=== PATIENT | female | born 1955 | race Caucasian/White ===

== ENCOUNTER 2018-10-02 12:20 | Observation (INO) | payer OTHER ==
[~2018-10-02] VITALS: Ht 162.6 cm; Wt 89.2 kg
[~2018-10-02 12:20] MED LIST: ANECREAM515 GM; CEPH500 PO; Inderal 20 mg T20 MG PO; MIRALAX119 GM; ONDA4ODT MM; Omeprazole20 M1 PO; Stool Softener100 MG PO; TRAM50 PO; ZESTORETIC 20-121 EA PO
[2018-10-02 13:03] LABS: Source, Urine Clean Catch
[2018-10-02 13:08] LABS: BASOPHILS ABSOLUTE AUTO 0.04 K/mm3 (0.00-0.23); BASOPHILS PERCENT AUTO 1 % (0-2); EOSINOPHILS ABSOLUTE AUTO 0.09 K/mm3 (0.00-0.68); EOSINOPHILS PERCENT AUTO 1 % (0-6); Hematocrit 48.2 % (33.0-51.0); Hemoglobin 15.4 g/dL (11.5-16.0); IMMATURE GRAN ABSOLUTE AUTO 0.04 K/mm3 (0.00-0.10); IMMATURE GRAN PERCENT AUTO 1 % (0-1); LYMPHOCYTES ABSOLUTE AUTO 1.86 K/mm3 (0.84-5.20); LYMPHOCYTES PERCENT AUTO 23 % (21-46); MONOCYTES ABSOLUTE AUTO 0.56 K/mm3 (0.16-1.47); MONOCYTES PERCENT AUTO 7 % (4-13); Mean Corpuscular HGB 29.3 pg (26.0-34.0); Mean Corpuscular Volume 92 fL (80-100); Mean Platelet Volume 11.2 fL (9.1-12.4); NEUTROPHILS ABSOLUTE AUTO 5.47 K/mm3 (1.96-9.15); NEUTROPHILS PERCENT AUTO 68 % (41-73); Platelet Count 283 K/mm3 (150-400); RDW Coefficient Variation 13.8 % (11.7-14.2); RDW Standard Deviation 46.7 fL (35.1-46.3); Red Blood Cell Count 5.25 M/mm3 (3.80-5.20); White Blood Cell Count 8.06 K/mm3 (4.00-11.30)
[2018-10-02 13:10] LABS: Appearance, Urine Hazy (Clear); Blood, Urine Neg (Neg); Color, Urine Yellow (P-Yellow); Glucose Qualitative, Urine Neg (Neg); Ketones, Urine 2+ (Neg); Leukocyte Esterase, Urine 1+ (Neg); Nitrite, Urine Neg (Neg); Protein, Urine 2+ (Neg); Specific Gravity, Urine 1.025 (1.003-1.022); Urobilinogen, Urine 1+ (Normal)
[2018-10-02 13:33] LABS: Bilirubin, Urine 2+ (Neg)
[2018-10-02 13:34] LABS: Bacteria Mod /hpf; Granular Casts 0-2 /lpf (0); Red Blood Cells, Urine Not Seen /hpf (0-2); Squamous Epithelial Cells Mod /hpf (Few)
[2018-10-02 15:07] LABS: Albumin, Blood 3.6 g/dL (3.4-5.0); Albumin/Globulin Ratio 1.1 (0.8-1.8); Bilirubin, Total 0.3 mg/dL (0.1-1.0); Bun/Creatinine Ratio 21.4 (12.0-20.0); Calcium, Blood 9.7 mg/dL (8.5-10.1); Creatinine, Blood 2.06 mg/dL (0.40-1.00); Globulin, Blood 3.4 g/dL (2.2-4.0); Potassium, Blood 4.5 mmol/L (3.5-5.5)
[2018-10-02] MEDS ORDERED: LISI20 PO (15:37)
[2018-10-02] MEDS ORDERED: Pravachol40 MG PO (15:38)
[2018-10-02] MEDS ORDERED: CHOL10002 (15:38)
[2018-10-02] MEDS ORDERED: PIOG15 PO (18:24)
[2018-10-03 05:06] LABS: Hematocrit 40.5 % (33.0-51.0); Hemoglobin 12.7 g/dL (11.5-16.0); Mean Corpuscular HGB 28.7 pg (26.0-34.0); Mean Corpuscular HGB Conc 31.4 g/dL (31.5-36.5); Mean Corpuscular Volume 92 fL (80-100); Mean Platelet Volume 10.8 fL (9.1-12.4); Platelet Count 240 K/mm3 (150-400); RDW Coefficient Variation 13.6 % (11.7-14.2); RDW Standard Deviation 46.2 fL (35.1-46.3); Red Blood Cell Count 4.42 M/mm3 (3.80-5.20); White Blood Cell Count 6.71 K/mm3 (4.00-11.30)
--- NOTE | 2018-10-03 05:27 | NUR ---
SHIFT SUMMARY PT ADMITTED FOR MARTÍN, ALERT AND ORIENTED. UP WITH SBA TO BATHROOM, SOME WEAKNESS NOTED. PT RUNNING LOW B/P, B/P MEDS HELD DURING THE NIGHT. PT HAS NO C/O'S NAUSEA UPON ARRIVAL TO UNIT, HAS EATEN 4 JELLOS. IVF'S INFUSING WITHOUT DIFFICULTY. PT SLEPT WELL DURING THE NIGHT. PT ADMITS TO FEELING BETTER THIS AM. WILL CONTINUE TO MONITOR.
[2018-10-03 05:37] LABS: Bun/Creatinine Ratio 21.5 (12.0-20.0); Calcium, Blood 8.5 mg/dL (8.5-10.1); Creatinine, Blood 1.49 mg/dL (0.40-1.00); Potassium, Blood 4.2 mmol/L (3.5-5.5)
--- NOTE | 2018-10-03 10:36 | NUR ---
Advance Directive Education/spiritual care visit conducted. Patient admit referral for AD education completed. Walked patient through the importance and process of Advance Directive, patient acknowledged comprehension and stated that she will complete forms in presence of health infant caregiver. Also conducted spiritual care visit including providing emotional support, normalizing patient experience and providing a calming presence. Patient expressed gratitude for the visit.
--- NOTE | 2018-10-03 16:30 | NUR ---
TO DAY SURGERY FOR EGD
--- NOTE | 2018-10-03 17:01 | NUR ---
10/03/18 1701 Gonzalez See PATIENT DETERMINED TO BE ASA APPROPRIATE FOR PROPOFOL SEDATION PRIOR TO START OF PROCEDURE BY DR. Reyes Block Placed. 3-LEAD EKG REVIEWED WITH PHYSICIAN PRIOR TO START OF PROCEDURE.Patient to ENDO 1History, Chart, Medications and Allergies reviewed before start of procedure. MONITOR INTACT WITH CONTINUOUS PULSE OXIMETRY AND INTERMITTENT BP.O2 VIA N/C INTACT THROUGHOUT SEDATION/PROCEDURE.
--- NOTE | 2018-10-04 05:32 | NUR ---
SHIFT SUMMARY PT HAD UNEVENTFUL NIGHT. NO C/O'S NAUSEA. HAS BEEN UP TO BATHROOM PER SELF DURING THE NIGHT. HAD LOOSE STOOL THIS AM, SPECIMEN SENT TO LAB. WILL CONTINUE TO MONITOR.
[2018-10-04 05:39] LABS: Albumin, Blood 3.3 g/dL (3.4-5.0); Anion Gap 6 mmol/L (6-16); Blood Urea Nitrogen 16 mg/dL (8-24); Bun/Creatinine Ratio 13.6 (12.0-20.0); CO2, Blood 24 mmol/L (21-32); Calcium, Blood 8.9 mg/dL (8.5-10.1); Chloride, Blood 115 mmol/L (98-108); Creatinine, Blood 1.18 mg/dL (0.40-1.00); Glomerular Filtration Rate 49 (60-); Glucose, Blood 85 mg/dL (70-99); Phosphorus, Blood 2.9 mg/dL (2.5-4.9); Potassium, Blood 3.9 mmol/L (3.5-5.5); Sodium, Blood 145 mmol/L (136-145)
[2018-10-04 05:55] LABS: Adenovirus F 40/41 Not Detected (NOT DETECT); Astrovirus Not Detected (NOT DETECT); Campylobacter Sp Not Detected (NOT DETECT); Cryptosporidium Not Detected (NOT DETECT); Cyclospora Cayetanensis Not Detected (NOT DETECT); E. Coli O157 Not Detected (NOT DETECT); Entamoeba Histolytica Not Detected (NOT DETECT); Enteroaggregative E. coli-EAEC Not Detected (NOT DETECT); Enteropathogenic E. coli-EPEC Not Detected (NOT DETECT); Enterotoxigenic E. coli-ETEC Not Detected (NOT DETECT); Giardia Lamblia Not Detected (NOT DETECT); Norovirus GI/GII Not Detected (NOT DETECT); Plesiomonas Shigelloides Not Detected (NOT DETECT); Rotavirus A Not Detected (NOT DETECT); Salmonella Sp Not Detected (NOT DETECT); Sapovirus Not Detected (NOT DETECT); Shiga Toxin-prod E. coli-STEC Not Detected (NOT DETECT); Shigella/Enteroin E. coli-EIEC Not Detected (NOT DETECT); Vibrio Cholerae Not Detected (NOT DETECT); Vibrio Sp Not Detected (NOT DETECT); Yersinia Enterocolitica Not Detected (NOT DETECT)
[2018-10-04] MEDS ORDERED: ACET325 PO (11:44)
[2018-10-04] MEDS ORDERED: GAVILAX17 GM PO (11:45)
[2018-10-04] MEDS ORDERED: PANT40 PO (11:46)
--- NOTE | 2018-10-04 12:08 | NUR ---
PATIENT D/C'D TO HOME WITH . RX MEDICATIONS FAXED TO [facility]. DC INSTRUCTIONS AND EDUCATION DISCUSSED WITH PATIENT AND COPY PROVIDED. PATIENT DENIES ANY FURTHER QUESTIONS OR CONCERNS.
== END 2018-10-04 12:21 | disposition home or self-care (01) ==
LOC: ER 12:20 → MEDS 12:21 → ENPENDDIS 10-04 11:28 → MEDS 10-04 12:21
PROVIDERS: Emergency Medicine; Physician Assistant; Student in an Organized Health Care Education/Training Program; ADMIT Internal Medicine
PROC: 0DB98ZX Excision of Duodenum, Via Natural or Artificial Opening Endoscopic, Diagnostic (ICD-10-PCS; principal; 2018-10-03 17:15)
PROC: 0DB68ZX Excision of Stomach, Via Natural or Artificial Opening Endoscopic, Diagnostic (ICD-10-PCS; principal; 2018-10-03 17:15)
DX: K25.9 Gastric ulcer, unspecified as acute or chronic, without hemorrhage or perforation (principal); K26.9 Duodenal ulcer, unspecified as acute or chronic, without hemorrhage or perforation; K29.50 Unspecified chronic gastritis without bleeding; B96.81 Helicobacter pylori [H. pylori] as the cause of diseases classified elsewhere; K29.80 Duodenitis without bleeding; K44.9 Diaphragmatic hernia without obstruction or gangrene; N17.9 Acute kidney failure, unspecified; R15.0 Incomplete defecation; E11.9 Type 2 diabetes mellitus without complications; I10 Essential (primary) hypertension; E78.5 Hyperlipidemia, unspecified; E66.9 Obesity, unspecified; F17.210 Nicotine dependence, cigarettes, uncomplicated; Z88.8 Allergy status to other drugs, medicaments and biological substances; Z88.5 Allergy status to narcotic agent; Z79.899 Other long term (current) drug therapy
CPT/HCPCS: 36415; 74018; 76770; 80048; 80053; 80069; 81001; 82947; 83036; 83690; 85025; 85027; 87086; 87507; 96361; 96374; 96375; 96376; 99285-25; C9113; G0378; J2550; J2704; J2765; J7030; J7120

== ENCOUNTER → 2022-04-09 | Outpatient (CLI) | payer MEDICARE, OTHER ==
[~2022-04-09] MED LIST changes: +ACET325 PO; +CHOL10002; +GAVILAX17 GM PO; +LIDO700A20 TOP; +LISI20 PO; +PANT40 PO; +PIOG15 PO; +Pravachol40 MG PO
[2022-04-10 19:37] LABS: Protein, Urine Quantitative 14.6 mg/dL (0.0-11.9)
[2022-04-10 19:38] LABS: Microalbumin, Urine Quant. <5.000 mg/L (0.000-20.000)
== END | disposition home or self-care (01) ==
LOC: LAB SHORT 07:30 → LAB 07:30
PROVIDERS: Internal Medicine Nephrology
DX: N18.30 Chronic kidney disease, stage 3 unspecified (principal); D63.1 Anemia in chronic kidney disease; N25.81 Secondary hyperparathyroidism of renal origin; E55.9 Vitamin D deficiency, unspecified; E78.00 Pure hypercholesterolemia, unspecified; G60.9 Hereditary and idiopathic neuropathy, unspecified; D51.8 Other vitamin B12 deficiency anemias; D50.9 Iron deficiency anemia, unspecified; R76.9 Abnormal immunological finding in serum, unspecified; R94.5 Abnormal results of liver function studies; R94.6 Abnormal results of thyroid function studies
CPT/HCPCS: 81050; 82043; 82570; 84156

== ENCOUNTER → 2022-04-10 | Outpatient (CLI) | payer MEDICARE, OTHER | END | disposition home or self-care (01) | LOC: LAB 06:59 → LAB SHORT 06:59 | DX: N18.30 Chronic kidney disease, stage 3 unspecified (principal); D63.1 Anemia in chronic kidney disease; N25.81 Secondary hyperparathyroidism of renal origin; E55.9 Vitamin D deficiency, unspecified; E78.00 Pure hypercholesterolemia, unspecified; G50.9 Disorder of trigeminal nerve, unspecified; D51.8 Other vitamin B12 deficiency anemias; D50.9 Iron deficiency anemia, unspecified; R76.9 Abnormal immunological finding in serum, unspecified; R94.5 Abnormal results of liver function studies; R94.6 Abnormal results of thyroid function studies | CPT/HCPCS: 86335 ==

== ENCOUNTER 2023-01-26 09:52 | Day surgery (SDC) | payer MEDICARE, OTHER ==
[~2023-01-26] VITALS: Ht 162.6 cm; Wt 137.1 kg
[~2023-01-26 09:52] MED LIST changes: +ALBU2.5V5; +ANORO ELLIPTA1 EACH INH; +CALC.25 PO; +CYCL10 PO; +FARXIGA5 MG PO; +FURO20 PO; +GABA300 PO; +OXYB5 PO; +PROAIR RESPICL90 MCG IH; +TRAZ100 PO; +VITAMIN D5000 UNIT PO
[2023-01-26 10:27] VITALS: BP 139/80
--- NOTE | 2023-01-26 10:41 | NUR ---
History, Chart, Medications and Allergies reviewed before start of procedure. Lungs clear T/O to Auscultation. Patient confirms NPO status and agrees with scheduled surgery. Pre-Op teaching done. Pt verbalizes understanding. Patient States Post-Procedure ride home has been arranged. Patient states colon prep results clear.
--- NOTE | 2023-01-26 11:10 | NUR ---
01/26/23 1110 Nida Zavaleta SEE ANESTHESIA RECORD FROM DR WARD FOR SEDATION
[2023-01-26 11:42] VITALS: BP 136/63
[2023-01-26 11:56] VITALS: BP 138/88
--- NOTE | 2023-01-26 12:02 | NUR ---
Discharge instructions reviewed with patient. Patient verbalizes understanding. Copy given to patient to take home. Patient States Post-Procedure ride home has been arranged. TAKING FLUIDS WELL. Discharged via wheelchair to private car for ride home.
== END 2023-01-26 12:00 | disposition home or self-care (01) ==
LOC: ORSCMMR 09:52 → ORD 11:30 → ORSCMMR 12:00
PROVIDERS: Surgery
PROC: 0DBN8ZX Excision of Sigmoid Colon, Via Natural or Artificial Opening Endoscopic, Diagnostic (ICD-10-PCS; principal; 2023-01-26 11:30)
DX: Z12.11 Encounter for screening for malignant neoplasm of colon (principal); K63.5 Polyp of colon; K57.30 Diverticulosis of large intestine without perforation or abscess without bleeding; J44.9 Chronic obstructive pulmonary disease, unspecified; R06.02 Shortness of breath; E11.22 Type 2 diabetes mellitus with diabetic chronic kidney disease; I12.9 Hypertensive chronic kidney disease with stage 1 through stage 4 chronic kidney disease, or unspecified chronic kidney disease; N18.9 Chronic kidney disease, unspecified; E66.01 Morbid (severe) obesity due to excess calories; Z68.43 Body mass index [BMI] 50.0-59.9, adult; E78.5 Hyperlipidemia, unspecified; Z87.891 Personal history of nicotine dependence; Z79.899 Other long term (current) drug therapy
CPT/HCPCS: 82947; 88305; J2704; J7120

== ENCOUNTER → 2023-06-13 | Outpatient (CLI) | payer MEDICARE, OTHER ==
[2023-06-19 15:18] LABS: ALPHA-1 %,URINE 4.7 %; ALPHA-2 %,URINE 0.9 %; BETA GLOBULIN %,URINE 41.4 %; HOURS COLLECTED Random hr; TOTAL PROTEIN,URINE-PER VOLUME 10 mg/dL; TOTAL VOLUME Random mL
== END ==
LOC: LAB FUT 06-12 09:30 → LAB 14:46 → LAB SHORT 14:46
PROVIDERS: Hospitalist
DX: N18.32 Chronic kidney disease, stage 3b (principal)
CPT/HCPCS: 84156; 84166; 86335

== ENCOUNTER → 2025-02-25 | Outpatient (CLI) | payer MEDICARE, OTHER ==
[~2025-02-25] MED LIST changes: +ALLO100 PO; +DULO60 PO; +MOUNJARO10 MG/0.5 SC; +NALTREX1.5 MG PO; +PREG100 PO; +PROG100 PO; +TOPI100 PO
[2025-02-25 20:33] LABS: Creatinine, Urine Random 149.0 mg/dL (27.00-270.00); Microalb/Creat Ratio UR, Rand 16.174 mg/g (0.000-30.000); Microalbumin, Random Urine 24.1 mg/L (0.000-20.000)
== END ==
LOC: LAB 14:15 → LAB SHORT 14:15
PROVIDERS: Hospitalist
DX: N18.32 Chronic kidney disease, stage 3b (principal); E11.22 Type 2 diabetes mellitus with diabetic chronic kidney disease
CPT/HCPCS: 82043; 82570

== ENCOUNTER 2025-03-01 23:53 | Inpatient (IN) | payer MEDICARE, OTHER ==
[~2025-03-01] VITALS: Ht 162.6 cm; Wt 133.6 kg
[~2025-03-01 23:53] MED LIST changes: -ALLO100 PO; -DULO60 PO; -MOUNJARO10 MG/0.5 SC; -NALTREX1.5 MG PO; -PREG100 PO; -PROG100 PO; -TOPI100 PO
[2025-03-02 01:24] LABS: BASOPHILS ABSOLUTE AUTO 0.02 K/mm3 (0.00-0.23); BASOPHILS PERCENT AUTO 0 % (0-2); EOSINOPHILS ABSOLUTE AUTO 0.03 K/mm3 (0.00-0.68); EOSINOPHILS PERCENT AUTO 1 % (0-6); Hematocrit 34.9 % (33.0-51.0); Hemoglobin 10.8 g/dL (11.5-16.0); IMMATURE GRAN ABSOLUTE AUTO 0.04 K/mm3 (0.00-0.10); IMMATURE GRAN PERCENT AUTO 1 % (0-1); LYMPHOCYTES ABSOLUTE AUTO 0.35 K/mm3 (0.84-5.20); LYMPHOCYTES PERCENT AUTO 6 % (21-46); MONOCYTES ABSOLUTE AUTO 0.44 K/mm3 (0.16-1.47); MONOCYTES PERCENT AUTO 7 % (4-13); Mean Corpuscular HGB Conc 30.9 g/dL (31.5-36.5); Mean Corpuscular Volume 90 fL (80-100); NEUTROPHILS ABSOLUTE AUTO 5.19 K/mm3 (1.96-9.15); NEUTROPHILS PERCENT AUTO 86 % (41-73); NRBC ABSOLUTE 0.00 K/mm3 (0.00-0.02); NRBC Auto 0.0 /100 WBC (0.0-0.2); Platelet Count 145 K/mm3 (150-400); RDW Coefficient Variation 14.7 % (11.7-14.2); RDW Standard Deviation 49.0 fL (35.1-46.3)
[2025-03-02 01:42] LABS: Alanine Aminotransfer (ALT/SGP 14.0 U/L (12-78); Albumin, Blood 2.7 g/dL (3.4-5.0); Albumin/Globulin Ratio 0.8 (0.8-1.8); Anion Gap 9.0 mmol/L (3-11); Aspartate Aminotrans (AST/SGOT 17.0 U/L (12-37); Bilirubin, Total 0.4 mg/dL (0.1-1.0); Blood Urea Nitrogen 22.0 mg/dL (8-24); CO2, Blood 24.0 mmol/L (21-32); Calcium, Blood 8.3 mg/dL (8.5-10.1); Chloride, Blood 109.0 mmol/L (98-108); Creatinine, Blood 1.65 mg/dL (0.40-1.00); Globulin, Blood 3.6 g/dL (2.2-4.0); Glucose, Blood 181.0 mg/dL (70-99); Potassium, Blood 4.0 mmol/L (3.5-5.5); Sodium, Blood 138.0 mmol/L (136-145); Total Protein, Blood 6.3 g/dL (6.4-8.2)
[2025-03-02] MEDS ORDERED: NS 1,000 ML IV SCH (01:45)
[2025-03-02 01:55] LABS: Magnesium, Blood 1.9 mg/dL (1.6-2.4)
[2025-03-02 02:34] LABS: Phosphorus, Blood 1.8 mg/dL (2.5-4.9); Thyroid Stimulating Hormone 0.942 uIU/mL (0.360-4.800)
[2025-03-02] MEDS ORDERED: Remdesivir (EUA) 200 MG in NS 250 ML IV ONE (03:10)
[2025-03-02 03:20] LABS: IMMATURE RETIC FRACTION 15.7 % (2.3-16.0); RETIC HGB EQUIVALENT 27.8 pg (28.20-36.60); RETICULOCYTE ABSOLUTE 0.0755 M/mm3 (0.0200-0.1100); RETICULOCYTE COUNT PERCENT 2.02 % (0.50-2.50)
[2025-03-02 03:55] LABS: Ferritin, Serum 49.0 ng/mL (8-252); Total Iron Binding Capacity 266.0 ug/dL (250-450)
[2025-03-02] MEDS ORDERED: Sodium Phosphate 15 MM in Dextrose 5% 500 ML IV ONE (04:00)
[2025-03-02 05:12] LABS: Source, Urine Clean Catch
[2025-03-02 05:21] LABS: Bilirubin, Urine Neg (Neg); Color, Urine Yellow (P-Yellow); Glucose Qualitative, Urine Neg (Neg); Ketones, Urine Neg (Neg); Leukocyte Esterase, Urine 3+ (Neg); Protein, Urine 2+ (Neg); Specific Gravity, Urine 1.015 (1.003-1.022); Urobilinogen, Urine NORM (Normal)
[2025-03-02 05:33] LABS: White Blood Cells, Urine 25-50 /hpf (0-5)
[2025-03-02 05:38] LABS: Red Blood Cells, Urine 0-2 /hpf (0-2)
[2025-03-02 05:55] VITALS: BP 104/41
[2025-03-02] MEDS ORDERED: PROG100 PO (06:11)
[2025-03-02] MEDS ORDERED: NALTREX1.5 MG PO (06:12)
[2025-03-02] MEDS ORDERED: TOPI100 PO (06:12)
[2025-03-02] MEDS ORDERED: DULO60 PO (06:16)
[2025-03-02] MEDS ORDERED: ALLO100 PO (06:16)
[2025-03-02] MEDS ORDERED: PREG100 PO (06:24)
[2025-03-02] MEDS ORDERED: MOUNJARO10 MG/0.5 SC (06:30)
[2025-03-02] MEDS ORDERED: Insulin Human Lispro 100 Units/ML 3ML Syringe SC SCH (07:30)
[2025-03-02 07:37] LABS: BASOPHILS ABSOLUTE AUTO 0.05 K/mm3 (0.00-0.23); BASOPHILS PERCENT AUTO 1 % (0-2); EOSINOPHILS ABSOLUTE AUTO 0.01 K/mm3 (0.00-0.68); EOSINOPHILS PERCENT AUTO 0 % (0-6); Hematocrit 35.2 % (33.0-51.0); Hemoglobin 11.1 g/dL (11.5-16.0); IMMATURE GRAN ABSOLUTE AUTO 0.13 K/mm3 (0.00-0.10); IMMATURE GRAN PERCENT AUTO 3 % (0-1); LYMPHOCYTES ABSOLUTE AUTO 0.79 K/mm3 (0.84-5.20); LYMPHOCYTES PERCENT AUTO 16 % (21-46); MONOCYTES ABSOLUTE AUTO 0.40 K/mm3 (0.16-1.47); MONOCYTES PERCENT AUTO 8 % (4-13); Mean Corpuscular HGB Conc 31.5 g/dL (31.5-36.5); Mean Corpuscular Volume 90 fL (80-100); NEUTROPHILS ABSOLUTE AUTO 3.57 K/mm3 (1.96-9.15); NEUTROPHILS PERCENT AUTO 72 % (41-73); NRBC ABSOLUTE 0.00 K/mm3 (0.00-0.02); NRBC Auto 0.0 /100 WBC (0.0-0.2); RDW Coefficient Variation 14.9 % (11.7-14.2); RDW Standard Deviation 48.8 fL (35.1-46.3)
[2025-03-02 07:43] LABS: C-REACTIVE PROTEIN, EXT RANGE 11.8 mg/dL (0.000-0.300)
[2025-03-02 07:45] LABS: Alanine Aminotransfer (ALT/SGP 17.0 U/L (12-78); Albumin, Blood 2.7 g/dL (3.4-5.0); Albumin/Globulin Ratio 0.7 (0.8-1.8); Anion Gap 8.0 mmol/L (3-11); Aspartate Aminotrans (AST/SGOT 25.0 U/L (12-37); Bilirubin, Total 0.4 mg/dL (0.1-1.0); Blood Urea Nitrogen 22.0 mg/dL (8-24); CO2, Blood 24.0 mmol/L (21-32); Calcium, Blood 8.1 mg/dL (8.5-10.1); Chloride, Blood 109.0 mmol/L (98-108); Creatinine, Blood 1.57 mg/dL (0.40-1.00); Globulin, Blood 3.7 g/dL (2.2-4.0); Glucose, Blood 118.0 mg/dL (70-99); Potassium, Blood 3.7 mmol/L (3.5-5.5); Sodium, Blood 137.0 mmol/L (136-145); Total Protein, Blood 6.4 g/dL (6.4-8.2)
[2025-03-02 08:02] VITALS: BP 122/101
[2025-03-02] MEDS ORDERED: Heparin Sodium,Porcine 5,000 UNIT/0.5 ML SDV SC SCH (09:00)
[2025-03-02 13:01] VITALS: BP 101/58
[2025-03-02 13:30] LABS: CORONAVIRUS COVID-19 AG Positive (NEGATIVE)
--- NOTE | 2025-03-02 16:31 | NUR ---
SHIFT SUMMARY RECEIVED REPORT FROM EDDA IN PCU. ASSUMED CARE AT 1600. 2 RN SKIN CHECK COMPLETED. REDDENED, YEAST-LIKE RASHES IN THE PANNUS AND GROIN FOLDS. PATIENT DENIES ANY PAIN, CP, DIZZINESS OR SOB AT THIS TIME. A&OX4, COOPERATIVE WITH CARE. 2L O2 VIA NC NEEDED, RA AT THIS TIME. PUREWICK IN PLACE. PATIENT ASLEEP IN BED. BED IN THE LOWEST POSITION. CALL LIGHT WITHIN REACH.
[2025-03-02 20:15] VITALS: BP 101/53
--- NOTE | 2025-03-03 03:59 | NUR ---
SHIFT SUMMARY A&OX4. ABLE TO MAKE ALL NEEDS KNOWN. CALLS APPROPRIATELY. REPORTS SOB AT REST THAT HAS BEEN CONSISTENT WITH THIS HOSPITAL STAY. O2 SATS REMAINING IN MID TO LOW 90'S WHILE SLEEPING. PUREWICK IS IN PLACE. EDUCATED ON IMPORTANCE OF REPOSITIONING FOR PRESSURE RELIEF. PT V/U. LEFT FOREARM IV INFILTRATED AND WAS CAUSING DISCOMFORT SO WAS REMOVED. RIGHT AC IV REMAINS PATENT. PT DOES HAVE SOME REDNESS TO RIGHT PANNUS AND UNDER BREASTS. PT STATES SHE ALWAYS HAS REDNESS LIKE THIS IN THESE AREAS. WILL REPORT TO DAY SHIFT TO DISCUSS WITH PROVIDER. CURRENTLY PT IS RESTING IN BED AT LOWEST POSITION, RAILS X2 AND CALL LIGHT WITH REACH.
[2025-03-03] MEDS ORDERED: Albuterol HFA200 ACT/6.7 GM INH INH PRN (04:00)
[2025-03-03] MEDS ORDERED: NS 250 ML IV PRN (04:55)
[2025-03-03] MEDS ORDERED: Remdesivir (EUA) 100 MG in NS 250 ML IV SCH (05:00)
[2025-03-03 05:22] VITALS: BP 134/73
[2025-03-03 06:30] LABS: BASOPHILS ABSOLUTE AUTO 0.02 K/mm3 (0.00-0.23); BASOPHILS PERCENT AUTO 1 % (0-2); EOSINOPHILS ABSOLUTE AUTO 0.13 K/mm3 (0.00-0.68); EOSINOPHILS PERCENT AUTO 3 % (0-6); Hematocrit 34.9 % (33.0-51.0); Hemoglobin 10.8 g/dL (11.5-16.0); IMMATURE GRAN ABSOLUTE AUTO 0.01 K/mm3 (0.00-0.10); IMMATURE GRAN PERCENT AUTO 0 % (0-1); LYMPHOCYTES ABSOLUTE AUTO 0.76 K/mm3 (0.84-5.20); LYMPHOCYTES PERCENT AUTO 18 % (21-46); MONOCYTES ABSOLUTE AUTO 0.54 K/mm3 (0.16-1.47); MONOCYTES PERCENT AUTO 13 % (4-13); Mean Corpuscular HGB Conc 30.9 g/dL (31.5-36.5); Mean Corpuscular Volume 91 fL (80-100); NEUTROPHILS ABSOLUTE AUTO 2.77 K/mm3 (1.96-9.15); NEUTROPHILS PERCENT AUTO 65 % (41-73); NRBC ABSOLUTE 0.00 K/mm3 (0.00-0.02); NRBC Auto 0.0 /100 WBC (0.0-0.2); Platelet Count 127 K/mm3 (150-400); RDW Coefficient Variation 14.9 % (11.7-14.2); RDW Standard Deviation 49.6 fL (35.1-46.3)
[2025-03-03 06:51] LABS: Anion Gap 10.0 mmol/L (3-11); Blood Urea Nitrogen 23.0 mg/dL (8-24); CO2, Blood 22.0 mmol/L (21-32); Calcium, Blood 7.9 mg/dL (8.5-10.1); Chloride, Blood 111.0 mmol/L (98-108); Creatinine, Blood 1.33 mg/dL (0.40-1.00); Glucose, Blood 105.0 mg/dL (70-99); Potassium, Blood 3.8 mmol/L (3.5-5.5); Sodium, Blood 139.0 mmol/L (136-145)
[2025-03-03 08:17] VITALS: BP 129/73
[2025-03-03] MEDS ORDERED: Miconazole Nitrate 2% 85 GM PWD TOP SCH (09:00)
[2025-03-03] MEDS ORDERED: CefTRIAXone Sodium 1,000 MG in NS 100 ML IV SCH (13:00)
[2025-03-03 15:46] VITALS: BP 142/78
--- NOTE | 2025-03-03 18:34 | NUR ---
SHIFT SUMMARY NO ACUTE CHANGES THIS SHIFT, VSS, ON RA T/O SHIFT, PT REPORTS "FEELING BETTER", UP TO BATHROOM W/SBA ASSIST THIS SHIFT & UP TO CHAIR FOR LUNCH AND DINNER, EATING DINNER IN CHAIR AT THIS TIME, CALL LIGHT IN REACH, WILL CONT TO MONITOR UNTIL REPORT GIVEN TO ONCOMING NURSE.
[2025-03-03 19:48] VITALS: BP 156/80
[2025-03-04 01:13] VITALS: BP 141/65
[2025-03-04 01:15] VITALS: BP 141/65
--- NOTE | 2025-03-04 01:35 | NUR ---
PT HR NOTED TO BE BRADYCARDIC WHILE RESTING IN BED AT 45-50'S BPM BUT OCCASIONALLY TOUCHING LOW 38 BPM BUT UNSUSTAINED. PT DENIES ALL S/S CARDIAC DISTRESS AND ALL OTHER VITALS STABLE. MADE AWARE W/NEW ORDER RECEIVED TO PERFORM STAT EKG AND ALERT PROVIDER IF HR SUSTAINS <40 BPM. PT ALSO COMMENCED ON TELE AND IS S.ANA AND 58 BPM AT THIS TIME.
--- NOTE | 2025-03-04 02:55 | NUR ---
PT WAS UP TO TOILET TO HAVE BM AND SUDDENLY BECAME DIZZY AND NAUSEOUS. ZOFRAN PRN WAS PROVIDED FOR GOOD EFFECT. SHE ADMITS THIS HAPPENS AT BASELINE WELL WHERE SHE EASILY BECOMES OVERHEATED WHICH LEADS TO DIZZINESS WHEN AMBULATING AND ASSOCIATED NAUSEA. PT RETURNED TO BED W/O ISSUE AND WAS ASSISTED TO REPOSITION FOR COMFORT. HR WAS 70'S-80'S WHEN OOB AND SPO2 REMAINED > 96% ON RA W/BP STABLE (143/72). WILL MONITOR FOR CHANGES OR ONGOING SYMPTOMS.
--- NOTE | 2025-03-04 04:13 | NUR ---
SUMMARY: PT A/OX4, CALLS APPROPRIATELY TO ENDORSE NEEDS AND IS 1PA W/CANE OOB. SHE REMAINS IN COVID ISOLATION BUT DENIES DYSPNEA, SOB AND SPO2 IS >94% ON RA. REMDESIVIR RECEIVED PER EMAR. SHE HAD AN EPISODE OF BECOMING OVERHEATED, DIZZY AND NAUSEOUS WHILE AMBULATING TO THE RESTROOM BUT STATED THIS OCCASIONALLY HAPPENS AT BASELINE AND IS "NOTHING NEW". PT WAS ASSISTED BACK TO BED SAFELY, PROVIDED COOL COMPRESS AND WAS MEDICATED W/PRN ZOFRAN FOR GOOD EFFECT. SHE ALSO REPORTED GAMA THAT WAS RELEIVED BY TYLENOL. PT NOTED TO BECOME BRADYCARDIC ON CONT BIOX W/HR 40'S-50'S AND LOW 38 BPM SO WAS COMMENCED ON TELE THIS SHIFT. MD ALSO INSTRUCTED TO PERFORM STAT EKG AND NOTIFY PROVIDER IF HR SUSTAINS <40 BPM BUT THIS HASN'T BEEN REQUIRED. PUREWICK REMAINS IN PLACE AND PT HAD X1 BM TONIGHT W/MICONAZOLE POWDER APPLIED TO RED/RASHY SKIN FOLDS. NO ACUTE CHANGES AND PROBABLE D/C HOME TODAY. WILL REPORT TO DAY RN.
[2025-03-04 04:25] VITALS: BP 121/59
[2025-03-04 05:38] LABS: BASOPHILS ABSOLUTE AUTO 0.00 K/mm3 (0.00-0.23); BASOPHILS PERCENT AUTO 0 % (0-2); EOSINOPHILS ABSOLUTE AUTO 0.00 K/mm3 (0.00-0.68); EOSINOPHILS PERCENT AUTO 0 % (0-6); Hematocrit 36.4 % (33.0-51.0); Hemoglobin 11.5 g/dL (11.5-16.0); IMMATURE GRAN ABSOLUTE AUTO 0.01 K/mm3 (0.00-0.10); IMMATURE GRAN PERCENT AUTO 0 % (0-1); LYMPHOCYTES ABSOLUTE AUTO 0.50 K/mm3 (0.84-5.20); LYMPHOCYTES PERCENT AUTO 12 % (21-46); MONOCYTES ABSOLUTE AUTO 0.24 K/mm3 (0.16-1.47); MONOCYTES PERCENT AUTO 6 % (4-13); Mean Corpuscular HGB Conc 31.6 g/dL (31.5-36.5); Mean Corpuscular Volume 89 fL (80-100); NEUTROPHILS ABSOLUTE AUTO 3.40 K/mm3 (1.96-9.15); NEUTROPHILS PERCENT AUTO 82 % (41-73); NRBC ABSOLUTE 0.00 K/mm3 (0.00-0.02); NRBC Auto 0.0 /100 WBC (0.0-0.2); Platelet Count 166 K/mm3 (150-400); RDW Coefficient Variation 14.7 % (11.7-14.2); RDW Standard Deviation 47.8 fL (35.1-46.3)
[2025-03-04 06:01] LABS: Anion Gap 10.0 mmol/L (3-11); Blood Urea Nitrogen 26.0 mg/dL (8-24); CO2, Blood 22.0 mmol/L (21-32); Calcium, Blood 8.6 mg/dL (8.5-10.1); Chloride, Blood 112.0 mmol/L (98-108); Creatinine, Blood 1.28 mg/dL (0.40-1.00); Glucose, Blood 203.0 mg/dL (70-99); Potassium, Blood 3.9 mmol/L (3.5-5.5); Sodium, Blood 140.0 mmol/L (136-145)
[2025-03-04 08:47] VITALS: BP 137/85
--- NOTE | 2025-03-04 09:00 | NUR ---
LEGAL SUPPORT SPECIALIST NOTE- ASSISTED THE PT TO THE BATHROOM, AFTER LARGE LIQUID BROWN INCONTINENT STOOL. IBETH CARE, LINNEN CHANGE, ATTENDS CHANGE. PT WENT MORE IN THE BATHROOM, IBETH CARE PROVIDED THEN WELL. RUBIN CHEN'D DUE TO LOOSE STOOL AND INCONTINENCE.
[2025-03-04 18:39] VITALS: BP 145/75
--- NOTE | 2025-03-04 19:09 | NUR ---
SHIFT SUMMARY N/V X1 THIS SHIFT, RELIEVED W/PO ZOFRAN, DIARRHEA X1, MD AWARE, NO OTHER ACUTE CHANGES, UP TO CHAIR T/O MOST OF SHIFT, CALL LIGHT IN REACH, WILL CONT TO MONITOR UNTIL REPORT GIVEN TO ONCOMING NURSE.
[2025-03-04 20:36] VITALS: BP 136/62
[2025-03-05 00:33] VITALS: BP 155/62
--- NOTE | 2025-03-05 04:27 | NUR ---
SHIFT SUMMARY 69 YR F. FULL CODE. NBO ACUTE CHANGES THIS SHIFT. PT C/O HEADACHE AND GIVEN TYLENOL PER EMAR. PT STATED SHE WAS NOT FEELING WELL AND THOUGHT IT MIGHT BE HER EAR, BUT SHE WAS NOT SURE. SHE FELL ASLEEP SHORTLY THEREAFTER. HR HAS BEEN HOVERING IN THE HIGH 40'S. PER ORDER, EKG IF IT SUSTAINS BELOW 40, WHICH HAS NOT HAPPENED. A COUPLE OF TIMES HER HR WENT UP TO OVER 100 BUT WENT BACK DOWN RIGHT AWAY. PT C/O NAUSEA AND WAS GIVEN ZOFRAN X1. NO EMISIS. BED IS IN LOW POSITION AND CALL LIGHT IN REACH.
[2025-03-05 04:48] VITALS: BP 129/55
[2025-03-05 07:33] VITALS: BP 138/74
[2025-03-05] MEDS ORDERED: DULoxetine HCL 60 MG Capsule DR PO SCH (09:00)
[2025-03-05] MEDS ORDERED: Lactobacil 2-S.Thermo-Bifido 1 1 Cap PO SCH (21:00)
[2025-03-05 21:49] VITALS: BP 125/64
[2025-03-06 00:45] VITALS: BP 133/63
[2025-03-06 04:15] VITALS: BP 105/58
[2025-03-06 05:33] LABS: BASOPHILS ABSOLUTE AUTO 0.03 K/mm3 (0.00-0.23); BASOPHILS PERCENT AUTO 1 % (0-2); EOSINOPHILS ABSOLUTE AUTO 0.09 K/mm3 (0.00-0.68); EOSINOPHILS PERCENT AUTO 2 % (0-6); Hematocrit 38.8 % (33.0-51.0); Hemoglobin 11.7 g/dL (11.5-16.0); IMMATURE GRAN ABSOLUTE AUTO 0.02 K/mm3 (0.00-0.10); IMMATURE GRAN PERCENT AUTO 1 % (0-1); LYMPHOCYTES ABSOLUTE AUTO 1.46 K/mm3 (0.84-5.20); LYMPHOCYTES PERCENT AUTO 34 % (21-46); MONOCYTES ABSOLUTE AUTO 0.52 K/mm3 (0.16-1.47); MONOCYTES PERCENT AUTO 12 % (4-13); Mean Corpuscular HGB Conc 30.2 g/dL (31.5-36.5); Mean Corpuscular Volume 91 fL (80-100); NEUTROPHILS ABSOLUTE AUTO 2.22 K/mm3 (1.96-9.15); NEUTROPHILS PERCENT AUTO 51 % (41-73); NRBC ABSOLUTE 0.00 K/mm3 (0.00-0.02); NRBC Auto 0.0 /100 WBC (0.0-0.2); Platelet Count 166 K/mm3 (150-400); RDW Coefficient Variation 14.7 % (11.7-14.2); RDW Standard Deviation 49.1 fL (35.1-46.3)
[2025-03-06 06:06] LABS: Anion Gap 8.0 mmol/L (3-11); Blood Urea Nitrogen 29.0 mg/dL (8-24); CO2, Blood 25.0 mmol/L (21-32); Calcium, Blood 8.8 mg/dL (8.5-10.1); Chloride, Blood 110.0 mmol/L (98-108); Creatinine, Blood 1.46 mg/dL (0.40-1.00); Glucose, Blood 100.0 mg/dL (70-99); Potassium, Blood 3.5 mmol/L (3.5-5.5); Sodium, Blood 139.0 mmol/L (136-145)
--- NOTE | 2025-03-06 06:18 | NUR ---
END OF SHIFT REPORT: PT REQ 2 LITERS O2 FOR DEEP SLEEP TO MAINTAIN SATS. PT DID NOT USE A PUREWICK OVERNIGHT AND CALLED FOR STANDBY ASSIST TO WALK TO RESTROOM. PT HAD NO EPISODES OF AFIB OVERNIGHT BUT DID HAVE AN IRREGULAR RHYTHM W P WAVES. WHILE AWAKE, PT HEART RATE 60-100 WITH NSR W CONDUCTED P PACS AND AT TIME BIGEMINY CONDUCTED PACS. WHILE SLEEPING PT ANA IN 40-50'S AND OCCASIONALLY GOING TO 39 BUT NOT SUSTAINED. PT DENIED FEELING LIGHTHEADED OR NAUSEAS OVERNIGHT AND WANTS TO GO HOME TODAY PENDING MD EVALUATION THIS AM. 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
[2025-03-06 07:57] VITALS: BP 117/83
[2025-03-06] MEDS ORDERED: ALBU90OI INH (11:24)
[2025-03-06] MEDS ORDERED: CEFP200 PO (11:25)
[2025-03-06] MEDS ORDERED: VISBIOME 112.51 EACH PO (11:25)
--- NOTE | 2025-03-06 12:07 | NUR ---
IV REMOVED TIP INTACT. PT LEFT WITH VIA WC. VERBALIZED UNDERSTANDING OF DISCHARGE INSTRUCTIONS. AND WAS CURRENTLY MAKING APPOINTMENT WITH KIDNEY SPECIALIST.
== END 2025-03-06 11:57 | disposition home or self-care (01) | DRG 177 ==
LOC: ER 23:53 → MEDS 03-02 02:56 → PCU 03-02 02:56 → MEDS 03-02 02:56 → PCU 03-02 04:52 → MEDS 03-02 15:42 → ENPENDDIS 03-06 11:09 → MEDS 03-06 11:57
PROVIDERS: Emergency Medicine; Family Medicine; Internal Medicine; ADMIT Internal Medicine
PROC: XW033E5 Introduction of Remdesivir Anti-infective into Peripheral Vein, Percutaneous Approach, New Technology Group 5 (ICD-10-PCS; principal; 2025-03-02)
PROC: 8E0ZXY6 Isolation (ICD-10-PCS; 2025-03-02)
PROC: 3E0DX3Z Introduction of Anti-inflammatory into Mouth and Pharynx, External Approach (ICD-10-PCS; 2025-03-03)
PROC: 3E03329 Introduction of Other Anti-infective into Peripheral Vein, Percutaneous Approach (ICD-10-PCS; 2025-03-03)
DX: U07.1 COVID-19 (principal); J96.01 Acute respiratory failure with hypoxia; N17.9 Acute kidney failure, unspecified; N39.0 Urinary tract infection, site not specified; Z68.41 Body mass index [BMI] 40.0-44.9, adult; D64.9 Anemia, unspecified; E78.5 Hyperlipidemia, unspecified; I12.9 Hypertensive chronic kidney disease with stage 1 through stage 4 chronic kidney disease, or unspecified chronic kidney disease; G43.909 Migraine, unspecified, not intractable, without status migrainosus; E86.0 Dehydration; N18.32 Chronic kidney disease, stage 3b; B96.20 Unspecified Escherichia coli [E. coli] as the cause of diseases classified elsewhere; E66.9 Obesity, unspecified; I48.91 Unspecified atrial fibrillation; Z88.8 Allergy status to other drugs, medicaments and biological substances; Z88.5 Allergy status to narcotic agent; Z79.84 Long term (current) use of oral hypoglycemic drugs; Z87.891 Personal history of nicotine dependence
CPT/HCPCS: 36415; 71045; 80048; 80053; 80069; 81001; 82607; 82728; 82746; 82947; 83540; 83550; 83605; 83735; 83970; 84100; 84443; 84484; 85025; 85045; 86140; 87077; 87086; 87186; 87426-QW; 93005; 93010; 93246; 93306; 94760; 94762; 99285-25; A9270; J0248; J0696; J1644; J7030; J7050; J7060

== ENCOUNTER 2025-04-13 18:28 | Emergency (ER) | payer MEDICARE, OTHER ==
[~2025-04-13] VITALS: Ht 162.6 cm; Wt 108.9 kg
[~2025-04-13 18:28] MED LIST changes: +ALBU90OI INH; +ALLO100 PO; +CEFP200 PO; +DULO60 PO; +MOUNJARO10 MG/0.5 SC; +NALTREX1.5 MG PO; +PREG100 PO; +PROG100 PO; +TOPI100 PO; +VISBIOME 112.51 EACH PO
[2025-04-13 19:08] LABS: BASOPHILS ABSOLUTE AUTO 0.02 K/mm3 (0.00-0.23); BASOPHILS PERCENT AUTO 0 % (0-2); EOSINOPHILS ABSOLUTE AUTO 0.18 K/mm3 (0.00-0.68); EOSINOPHILS PERCENT AUTO 4 % (0-6); Hematocrit 41.1 % (33.0-51.0); Hemoglobin 12.8 g/dL (11.5-16.0); IMMATURE GRAN ABSOLUTE AUTO 0.01 K/mm3 (0.00-0.10); IMMATURE GRAN PERCENT AUTO 0 % (0-1); LYMPHOCYTES ABSOLUTE AUTO 0.77 K/mm3 (0.84-5.20); LYMPHOCYTES PERCENT AUTO 16 % (21-46); MONOCYTES ABSOLUTE AUTO 0.31 K/mm3 (0.16-1.47); MONOCYTES PERCENT AUTO 6 % (4-13); Mean Corpuscular HGB Conc 31.1 g/dL (31.5-36.5); Mean Corpuscular Volume 89 fL (80-100); NEUTROPHILS ABSOLUTE AUTO 3.61 K/mm3 (1.96-9.15); NEUTROPHILS PERCENT AUTO 74 % (41-73); NRBC ABSOLUTE 0.00 K/mm3 (0.00-0.02); NRBC Auto 0.0 /100 WBC (0.0-0.2); Platelet Count 224 K/mm3 (150-400); RDW Coefficient Variation 15.5 % (11.7-14.2); RDW Standard Deviation 50.4 fL (35.1-46.3)
[2025-04-13 19:22] LABS: Prothrombin Time Results 11.6 Sec (9.7-11.5)
[2025-04-13 19:35] LABS: Alanine Aminotransfer (ALT/SGP 15.0 U/L (12-78); Albumin, Blood 3.2 g/dL (3.4-5.0); Albumin/Globulin Ratio 0.7 (0.8-1.8); Anion Gap 10.0 mmol/L (3-11); Aspartate Aminotrans (AST/SGOT 12.0 U/L (12-37); Bilirubin, Total 0.4 mg/dL (0.1-1.0); Blood Urea Nitrogen 23.0 mg/dL (8-24); CO2, Blood 23.0 mmol/L (21-32); Calcium, Blood 9.5 mg/dL (8.5-10.1); Chloride, Blood 109.0 mmol/L (98-108); Creatinine, Blood 1.26 mg/dL (0.40-1.00); Globulin, Blood 4.6 g/dL (2.2-4.0); Glucose, Blood 118.0 mg/dL (70-99); Potassium, Blood 4.0 mmol/L (3.5-5.5); Sodium, Blood 138.0 mmol/L (136-145); Total Protein, Blood 7.8 g/dL (6.4-8.2)
[2025-04-13] MEDS ORDERED: Ketorolac Tromethamine 15mg Vial IV ONE (22:00)
[2025-04-13] MEDS ORDERED: Ondansetron HCl 2 MG / ML 2ML Vial IV ONE (22:00)
[2025-04-14 01:19] LABS: Source, Urine Clean Catch
[2025-04-14 01:29] LABS: Glucose Qualitative, Urine Neg (Neg); Ketones, Urine 1+ (Neg); Leukocyte Esterase, Urine 1+ (Neg); Protein, Urine 2+ (Neg); Specific Gravity, Urine 1.010 (1.003-1.022); Urobilinogen, Urine 1+ (Normal)
[2025-04-14 01:31] LABS: Bilirubin, Urine 1+ (Neg); Color, Urine Yellow (P-Yellow)
[2025-04-14 01:32] LABS: Red Blood Cells, Urine 0-2 /hpf (0-2)
[2025-04-14] MEDS ORDERED: CEPH500 PO (01:42)
[2025-04-14] MEDS ORDERED: ONDA4ODT MM (01:43)
[2025-04-14 01:51] VITALS: BP 122/64
== END 2025-04-14 01:55 | disposition home or self-care (01) ==
LOC: ER 18:28
PROVIDERS: Emergency Medicine
DX: N30.00 Acute cystitis without hematuria (principal); I10 Essential (primary) hypertension; E11.9 Type 2 diabetes mellitus without complications; E78.5 Hyperlipidemia, unspecified; F17.200 Nicotine dependence, unspecified, uncomplicated; E66.9 Obesity, unspecified; Z68.41 Body mass index [BMI] 40.0-44.9, adult; Z88.8 Allergy status to other drugs, medicaments and biological substances; Z88.5 Allergy status to narcotic agent; Z79.899 Other long term (current) drug therapy
CPT/HCPCS: 74177; 80053; 81001; 83605; 83690; 85025; 85610; 86900; 86901; 87077; 87086; 87186; 96374-59; 96375; 99284-25; A9270; J1885; J2405; J7120; Q9967

== ENCOUNTER 2025-04-15 11:41 | Emergency (ER) | payer MEDICARE, OTHER ==
[~2025-04-15] VITALS: Ht 162.6 cm; Wt 117.9 kg
[2025-04-15] MEDS ORDERED: Ondansetron HCl 2 MG / ML 2ML Vial IV ONE (12:15)
[2025-04-15 12:23] LABS: BASOPHILS ABSOLUTE AUTO 0.03 K/mm3 (0.00-0.23); BASOPHILS PERCENT AUTO 1 % (0-2); EOSINOPHILS ABSOLUTE AUTO 0.13 K/mm3 (0.00-0.68); EOSINOPHILS PERCENT AUTO 2 % (0-6); Hematocrit 42.7 % (33.0-51.0); Hemoglobin 13.0 g/dL (11.5-16.0); IMMATURE GRAN ABSOLUTE AUTO 0.03 K/mm3 (0.00-0.10); IMMATURE GRAN PERCENT AUTO 1 % (0-1); LYMPHOCYTES ABSOLUTE AUTO 0.77 K/mm3 (0.84-5.20); LYMPHOCYTES PERCENT AUTO 14 % (21-46); MONOCYTES ABSOLUTE AUTO 0.37 K/mm3 (0.16-1.47); MONOCYTES PERCENT AUTO 7 % (4-13); Mean Corpuscular HGB Conc 30.4 g/dL (31.5-36.5); Mean Corpuscular Volume 90 fL (80-100); NEUTROPHILS ABSOLUTE AUTO 4.14 K/mm3 (1.96-9.15); NEUTROPHILS PERCENT AUTO 76 % (41-73); NRBC ABSOLUTE 0.00 K/mm3 (0.00-0.02); NRBC Auto 0.0 /100 WBC (0.0-0.2); Platelet Count 235 K/mm3 (150-400); RDW Coefficient Variation 15.8 % (11.7-14.2); RDW Standard Deviation 51.6 fL (35.1-46.3)
[2025-04-15 13:04] LABS: Alanine Aminotransfer (ALT/SGP 19.0 U/L (12-78); Albumin, Blood 3.3 g/dL (3.4-5.0); Albumin/Globulin Ratio 0.7 (0.8-1.8); Anion Gap 14.0 mmol/L (3-11); Aspartate Aminotrans (AST/SGOT 17.0 U/L (12-37); Bilirubin, Total 0.4 mg/dL (0.1-1.0); Blood Urea Nitrogen 22.0 mg/dL (8-24); CO2, Blood 19.0 mmol/L (21-32); Calcium, Blood 9.6 mg/dL (8.5-10.1); Chloride, Blood 109.0 mmol/L (98-108); Creatinine, Blood 1.34 mg/dL (0.40-1.00); Globulin, Blood 4.8 g/dL (2.2-4.0); Glucose, Blood 117.0 mg/dL (70-99); Potassium, Blood 4.1 mmol/L (3.5-5.5); Sodium, Blood 138.0 mmol/L (136-145); Total Protein, Blood 8.1 g/dL (6.4-8.2)
[2025-04-15 14:27] LABS: Influenza A, PCR NEGATIVE (NEGATIVE); Influenza B, PCR NEGATIVE (NEGATIVE); Resp Syncytial Virus, PCR NEGATIVE (NEGATIVE); SARS-Cov-2 (COVID-19) PCR, MMC NEGATIVE (NEGATIVE)
[2025-04-15] MEDS ORDERED: DiphenhydrAMINE HCl 50 MG/ML 1ML Vial IV ONE (15:10)
[2025-04-15] MEDS ORDERED: Metoclopramide HCl 5MG / ML 2ML Vial IV ONE (15:10)
[2025-04-15] MEDS ORDERED: NS 1,000 ML IV SCH (15:10)
[2025-04-15 16:44] VITALS: BP 144/99
== END 2025-04-15 17:28 | disposition home or self-care (01) ==
LOC: ER 11:41
PROVIDERS: Emergency Medicine; Physician Assistant
DX: E86.0 Dehydration (principal); R11.0 Nausea; F17.200 Nicotine dependence, unspecified, uncomplicated; Z88.8 Allergy status to other drugs, medicaments and biological substances; Z88.5 Allergy status to narcotic agent; Z79.899 Other long term (current) drug therapy
CPT/HCPCS: 80053; 85025; 87637; 96361; 96374; 96375; 99283-25; J1200; J2405; J2765; J7030